=== PATIENT | male | born 1940 | race Caucasian/White ===

== ENCOUNTER 2018-02-22 14:16 | Emergency (ER) | payer OTHER ==
[2018-02-22 15:33] LABS: #Eosinphils 0.3 thou/uL (0.0-0.7); #Lymphocytes 1.4 thou/uL (1.20-3.40); #Monocytes 0.9 thou/uL (0.11-0.59); #Neutrophils 8.5 thou/uL (1.40-6.50); %Eosinophils 2.4 % (0.0-10.0); %Lymphocytes 12.3 % (21.0-51.0); %Monocytes 8.2 % (0.0-10.0); %Neutrophils 77.2 % (42.0-75.0); Mean Corpuscular Hemoglobin 29.3 pg (27.0-31.0); Mean Corpuscular Volume 91.5 fL (78.0-98.0); Platelet Count 319 thou/uL (130-400); RBC Distribution Width 14.3 % (11.5-14.5); Red Blood Cell (RBC) Count 4.78 mill/uL (4.70-6.10)
--- NOTE | 2018-02-22 15:50 | RAD ---
PORTABLE CHEST: HISTORY: Syncope. Hypotension. Dizziness. COMPARISON: None. FINDINGS: Heart size is borderline. A pacemaker is present. The lungs are clear of infiltrates. There are no signs of failure. IMPRESSION: No active intrathoracic disease. POS: [facility]
[2018-02-22 15:58] LABS: ALT (SGPT) 10 U/L (8-55); AST (SGOT) 17 U/L (5-34); Albumin 3.7 g/dL (3.4-4.8); Alkaline Phosphatase 68 U/L (40-150); Anion Gap 14 mmol/L (10-20); BUN (Urea Nitrogen) 36 mg/dL (8.4-25.7); Bilirubin, Total 0.3 mg/dL (0.2-1.2); Calc. Creatinine Clearance 0 mL/min (70-130); Calcium 9.4 mg/dL (7.8-10.44); Carbon Dioxide 29 mmol/L (23-31); Chloride 95 mmol/L (98-107); Estimated GFR-MDRD 40; Globulin 4.2 g/dL (2.4-3.5); Glucose 143 mg/dL (83-110); Potassium 4.6 mmol/L (3.5-5.1); Protein, Total 7.9 g/dL (5.8-8.1); Sodium 133 mmol/L (136-145)
[2018-02-22 16:00] LABS: CKMB 1.5 ng/mL (0-6.6); Troponin I Less than 0.010 ng/mL (< 0.028)
== END 2018-02-22 20:23 ==
LOC: ERS 14:16 → EEVIPCON 14:16 → ERS 20:23
DX: R42 Dizziness and giddiness (principal); T50.995A Adverse effect of other drugs, medicaments and biological substances, initial encounter; I95.9 Hypotension, unspecified; E66.01 Morbid (severe) obesity due to excess calories; I49.9 Cardiac arrhythmia, unspecified; I11.0 Hypertensive heart disease with heart failure; I50.9 Heart failure, unspecified; J44.9 Chronic obstructive pulmonary disease, unspecified; Z79.899 Other long term (current) drug therapy; Z79.1 Long term (current) use of non-steroidal anti-inflammatories (NSAID); Z79.82 Long term (current) use of aspirin
CPT/HCPCS: 36415; 71045; 80053; 82553; 83880; 84484; 85025; 93005

== ENCOUNTER 2018-09-05 16:20 | Inpatient (IN) | payer OTHER ==
--- NOTE | 2018-09-05 16:57 | RAD ---
RADIOGRAPH CHEST 1 VIEW: 09/05/18 at 4:39 p.m. HISTORY: 77-year-old male with episode of hypotension and ventricular tachycardia. COMPARISON: 02/22/18. FINDINGS: There are no air space densities, pulmonary edema, pneumothorax, or cardiomegaly. The lateral costop hrenic angles are sharp. There is a single lead left subclavian AICD. There is mild hyperinflation [place] ggestive of COPD. There is no interval change overall. IMPRESSION: 1. No acute cardiopulmonary findings. 2. Automatic implantable cardioverter/defibrillator. jn [] POS: [facility]
[2018-09-05 17:18] LABS: #Eosinphils 0.1 thou/uL (0.0-0.7); #Lymphocytes 1.3 thou/uL (1.20-3.40); #Monocytes 0.8 thou/uL (0.11-0.59); #Neutrophils 8.4 thou/uL (1.40-6.50); %Basophils 0.4 % (0.0-1.0); %Eosinophils 0.8 % (0.0-10.0); %Lymphocytes 12.1 % (21.0-51.0); %Monocytes 7.2 % (0.0-10.0); %Neutrophils 79.6 % (42.0-75.0); Hemoglobin 13.2 g/dL (14.0-18.0); Mean Corpuscular HGB CONC 33.8 g/dL (32.0-36.0); Mean Corpuscular Hemoglobin 31.6 pg (27.0-31.0); Mean Corpuscular Volume 93.6 fL (78.0-98.0); Mean Platelet Volume 6.2 fL (7.4-10.4); Platelet Count 351 thou/uL (130-400); RBC Distribution Width 13.4 % (11.5-14.5); Red Blood Cell (RBC) Count 4.16 mill/uL (4.70-6.10); White Blood Cell (WBC) Count 10.5 thou/uL (4.8-10.8)
[2018-09-05 17:44] LABS: ALT (SGPT) 8 U/L (8-55); AST (SGOT) 12 U/L (5-34); Albumin 3.4 g/dL (3.4-4.8); Alkaline Phosphatase 62 U/L (40-150); Anion Gap 13 mmol/L (10-20); BUN (Urea Nitrogen) 28 mg/dL (8.4-25.7); Bilirubin, Total 0.4 mg/dL (0.2-1.2); Calc. Creatinine Clearance 0 mL/min (70-130); Calcium 8.8 mg/dL (7.8-10.44); Carbon Dioxide 35 mmol/L (23-31); Chloride 89 mmol/L (98-107); Estimated GFR-MDRD 54; Globulin 3.5 g/dL (2.4-3.5); Glucose 149 mg/dL (83-110); Protein, Total 6.9 g/dL (5.8-8.1); Sodium 134 mmol/L (136-145)
[2018-09-05] MEDS ORDERED: Potassium Chloride 20 MEQ/100 ML PREMIX BAG ONE (17:56)
[2018-09-05] MEDS ORDERED: Potassium Chloride 20 MEQ TAB ONE (17:56)
[2018-09-05 22:57] VITALS: BMI 41.7
[2018-09-05 23:24] LABS: Troponin I 0.027 ng/mL (< 0.028)
[2018-09-06 01:46] LABS: Troponin I 0.025 ng/mL (< 0.028)
[2018-09-06] MEDS ORDERED: HYDROcodone/Acetaminophen 5/325 mg Tablet PO PRN (07:16)
[2018-09-06] MEDS ORDERED: hydrALAZINE 20 MG/ML VIAL SLOW IVP PRN (07:16)
[2018-09-06] MEDS ORDERED: HumaLOG 300 UNITS/3 ML VIAL SC PRN (07:16)
[2018-09-06] MEDS ORDERED: Clotrimazole 1 % Cream 30 GM TUBE TOP PRN (07:16)
[2018-09-06] MEDS ORDERED: Loratadine 10 MG TAB PO PRN (07:16)
[2018-09-06] MEDS ORDERED: Diabetic Tussin 200 MG/10 ML UDCUP PO PRN (07:16)
[2018-09-06] MEDS ORDERED: Dextrose 50% Abboject 50 ML SYRINGE SLOW IVP PRN (07:16)
[2018-09-06] MEDS ORDERED: Loperamide HCl 2 MG CAP PO PRN (07:16)
[2018-09-06] MEDS ORDERED: Calcium Carbonate 500 MG ChewTAB PO PRN (07:16)
[2018-09-06] MEDS ORDERED: Bisacodyl 10 MG SUPP PR PRN (07:16)
[2018-09-06] MEDS ORDERED: Sodium Chloride 0.65% Nasal 44 ML BOT EA NARE PRN (07:16)
[2018-09-06] MEDS ORDERED: Eucerin (Mineral Oil/Petrolatum,White) 30 gm Jar TOP PRN (07:16)
[2018-09-06] MEDS ORDERED: Zolpidem Tartrate 5 MG TAB PO PRN (07:16)
[2018-09-06] MEDS ORDERED: Senokot S 8.6-50 MG TAB PO PRN (07:16)
[2018-09-06] MEDS ORDERED: Ondansetron PF 4 MG/2 ML Vial IVP PRN (07:16)
[2018-09-06] MEDS ORDERED: Nitroglycerin 0.4 MG TAB (25 Tab Bottle) SL PRN (07:16)
[2018-09-06] MEDS ORDERED: Cepastat Lozenges 1 LOZ PO PRN (07:16)
[2018-09-06] MEDS ORDERED: Ondansetron ODT 4 MG TAB PO PRN (07:16)
[2018-09-06] MEDS ORDERED: Artificial Tears 18 DROP/0.9 ML EA EYE PRN (07:16)
[2018-09-06] MEDS ORDERED: Dextrose 5% in Water 1,000 ML IV PRN (07:16)
[2018-09-06] MEDS ORDERED: Potassium Chloride 20 MEQ TAB PO SCH ×3 (08:00→10:30)
[2018-09-06 08:19] LABS: BUN (Urea Nitrogen) 20 mg/dL (8.4-25.7); Calc. Creatinine Clearance 125 mL/min (70-130); Calcium 9.7 mg/dL (7.8-10.44); Estimated GFR-MDRD 74; Glucose 126 mg/dL (83-110)
[2018-09-06 08:28] LABS: Anion Gap 14 mmol/L (10-20); Carbon Dioxide 35 mmol/L (23-31); Chloride 90 mmol/L (98-107); Sodium 136 mmol/L (136-145)
[2018-09-06 08:36] LABS: Potassium 2.7 mmol/L (3.5-5.1)
[2018-09-06] MEDS ORDERED: Furosemide 80 MG TAB PO SCH ×2 (09:00→14:00)
[2018-09-06] MEDS ORDERED: Metolazone 2.5 MG TAB PO SCH (09:00)
[2018-09-06] MEDS: Atorvastatin Calcium 40 MG TAB PO SCH (09:22)
[2018-09-06] MEDS: metFORMIN 500 MG TAB PO SCH (09:25)
[2018-09-06] MEDS: Clopidogrel Bisulfate 75 MG TAB PO SCH (09:25)
[2018-09-06] MEDS: Enoxaparin Sodium 40 MG/0.4 ML SYRINGE SC SCH (09:26)
[2018-09-06] MEDS: Metoprolol Tartrate 50 MG TAB PO SCH ×2 (09:26→20:33)
[2018-09-06] MEDS: Aspirin 81 mg Enteric Coated Tablet PO SCH (09:26)
[2018-09-06] MEDS: Famotidine 20 MG TAB PO SCH ×2 (09:27→20:34)
[2018-09-06] MEDS: Docusate 100 MG CAP PO SCH (09:27)
[2018-09-06] MEDS ORDERED: Furosemide 40 MG TAB PO SCH (10:45)
--- NOTE | 2018-09-06 10:52 | CON ---
DATE OF CONSULTATION: 09/06/2018 REASON FOR CONSULTATION: Multiple AICD shocks. HISTORY OF PRESENT ILLNESS: Mr. Scruggs is a 77-year-old white gentleman, who is an inmate, who comes to the hospital after having several AICD shocks delivered. About 5 times in the last week. He has had an AICD for many years now and has been told that he has a weak heart since the . He has had a total about 12 heart catheterization as he says 10 from the groin and 2 from the wrist. The last time he had a catheterization was about 6 months ago in [facility]. He does not remember, if they put stents or not. On arrival, he has been ruled out with negative troponins and his BNP was only 198, but his potassium was 2.7, so this is being replaced. Currently, he denies any chest pain, tightness, pressure, or shortness of breath. PAST MEDICAL HISTORY: 1. History of systolic heart failure. 2. COPD. 3. Coronary artery disease, status post stenting in the past. 4. GERD. 5. Hyperlipidemia. 6. Hypertension. 7. History of SC in the past. 8. Tuberculosis diagnosed in 2003, treated. SURGICAL HISTORY: 1. Pilonidal cyst removal. 2. Cardiac stents x3 in the past. SOCIAL HISTORY: Former smoker. No tobacco or drugs. Currently, an inmate. FAMILY HISTORY: Noncontributory. REVIEW OF SYSTEMS: A 12-point review of systems was done and was all negative unless stated in the history of present illness. OUTPATIENT MEDICATIONS: Include, 1. Aspirin 81 a day. 2. Atorvastatin 40 mg a day. 3. Atrovent inhaler. 4. Plavix 75 mg a day. 5. Docusate. 6. Furosemide 40 mg twice a day. 7. Isosorbide mononitrate 30 mg a day. 8. Loratadine 10 mg a day. 9. Ranitidine 150 mg twice a day. 10. Lactulose. 11. Metoprolol 25 mg twice a day. 12. Potassium chloride 20 mEq daily. 13. Simethicone p.r.n. ALLERGIES: NO KNOWN DRUG ALLERGIES. PHYSICAL EXAMINATION: VITAL SIGNS: Temperature 97.9, pulse 97, respiratory rate 18, saturating 92% on room air, and blood pressure 112/66. GENERAL: Awake, alert and oriented x3. No distress. HEENT: Normocephalic, atraumatic. NECK: Supple. LUNGS: Clear. CARDIOVASCULAR: S1 and S2. No S3 or S4. No murmurs. ABDOMEN: Soft. Positive bowel sounds. EXTREMITIES: No edema. SKIN: Warm and dry. LABORATORY DATA: Laboratory work was reviewed. CBC with a white count of 10, hemoglobin 13, hematocrit 38, and platelet count 351. Chemistries are unremarkable, except for potassium is 2.7, chloride of 90, carbon dioxide of 35. BUN and creatinine were normal. GFR of 74. Troponins were completely negative x3, and BNP of 198. EKG was reviewed. Chest x-ray was reviewed. ASSESSMENT: 1. Automated implantable cardioverter defibrillator shocks. 2. History of ischemic cardiomyopathy. 3. History of dilated cardiomyopathy. 4. History of multiple stents placed. 5. Left heart catheterization 6 months ago. 6. Hypokalemia. PLAN: 1. We will replace potassium, as this is most likely the cause of his multiple shocks in the last few days. 2. We will request records from [facility], as obviously he has been worked up extensively in the past and he just recently had a heart catheterization and I would be interesting to know what this showed. He is not having an acute coronary syndrome, so my threshold to repeat a heart catheterization is low at this time. 3. We will get an interrogation of his AICD. Thank you for letting us participate in the care of your patient. We will follow. Job ID: [id number]
--- NOTE | 2018-09-06 11:06 | HP ---
PRIMARY CARE PHYSICIAN: [facility] Call admission. [facility]. REASON FOR ADMISSION: Recurrent AICD firing. HISTORY OF PRESENT ILLNESS: A 77-year-old male who has multiple medical problems including congestive heart failure with AICD, as well as hypertension, diabetes type 2, morbid obesity, who lives in penitentiary. The patient reports that his AICD was reprogrammed 3 months ago. The patient reports that last week, he experienced total 5 times AICD firing. He reports that 3 times firing happened when he was asleep, which made him to wake up from sleep and yesterday, he had 2 more episodes of AICD firing around mid day when he was reading books. At that time, he experienced some sound and that AICD fired him and it made him uncomfortable. After couple of hours when he was talking to his friends and he had another episode of firing. He did not have any prodromal symptoms of chest pain, palpitation, but after shock, he was feeling discomfort in his chest and he was feeling dizzy, and that is why he came to emergency room for evaluation. In the emergency room, his AICD was interrogated and found with ventricular tachycardia. The patient was also found with hypokalemia, which was replaced in the emergency room. Subsequently, he was admitted to Telemetry floor. This patient denies any orthopnea, PND, or leg swelling. He denies any angina. He denies any fever, chills, nausea, vomiting, diarrhea. He denies any abdominal pain, focal motor or sensory symptoms. REVIEW OF SYSTEMS: CONSTITUTIONAL: Negative for weight loss or gain, ability to conduct usual activities. SKIN: Negative for rash, itching. EYES: Negative for double vision, pain. ENT/MOUTH: Negative for nose bleeding, neck stiffness, pain, tenderness. CARDIOVASCULAR: Negative for palpitations, dyspnea on exertion, orthopnea. RESPIRATORY: Negative for shortness of breath, wheezing, cough, hemoptysis, fever or night sweats. GASTROINTESTINAL: Negative for poor appetite, abdominal pain, heartburn, nausea, vomiting, constipation, or diarrhea. GENITOURINARY: Negative for urgency, frequency, dysuria, nocturia. MUSCULOSKELETAL: Negative for pain, swelling. NEUROLOGIC/PSYCHIATRIC: Negative for anxiety, depression. ALLERGY/IMMUNOLOGIC: Negative for skin rash, bleeding tendency. Please see my HPI for pertinent positives and negatives. All other review of systems reviewed and negative except as mentioned in the HPI. PAST MEDICAL HISTORY: Cardiac arrhythmia (ventricular tachycardia), chronic systolic congestive heart failure, AICD in place, osteoarthritis, COPD, coronary artery disease required stent, gastroesophageal reflux disease, morbid obesity, hypertension, dyslipidemia, history of latent TB treated in 2003, history of myocardial infarction. PAST SURGICAL HISTORY: Cardiac catheterization several times required 3 stents, pilonidal cyst surgery several years ago, AICD placement. PAST PSYCHIATRIC HISTORY: Reviewed and negative. SOCIAL HISTORY: The patient is former smoker. He quit smoking as well as alcohol drinking in 1994. He denies any other illicit drug abuse. FAMILY HISTORY: Hypertension and diabetes runs among several family members. His father had a pancreatic cancer. Mother from kidney-related problem. One brother also from heart and diabetes-related problem. ALLERGIES: NO KNOWN DRUG ALLERGIES. CURRENT HOME MEDICATIONS: 1. Aspirin 81 mg p.o. daily. 2. Atorvastatin 40 mg p.o. daily. 3. Atrovent 2 puffs inhalation 4 times daily. 4. Plavix 75 mg daily. 5. Docusate 100 mg daily. 6. Lasix 40 mg p.o. b.i.d. 7. Imdur 90 mg daily. 8. Claritin 10 mg p.r.n. 9. Ranitidine 150 mg b.i.d. 10. Lactulose as directed. 11. Metoprolol 25 mg 2 times daily. 12. Potassium chloride 20 mEq p.o. daily. 13. Simethicone as needed. EMERGENCY ROOM COURSE: The patient is given potassium 20 mEq IV and potassium chloride 40 mEq p.o. PHYSICAL EXAMINATION: VITAL SIGNS: On arrival, blood pressure improved to 177/111, pulse 89, respiratory rate 20, temperature 98.6, saturation 99% on room air. Weight 145.2 kg. GENERAL: The patient is currently alert, awake, in no obvious acute distress. HEENT: Head; normocephalic, atraumatic. Eyes; pupils round, reactive to light. Extraocular muscle intact. ENT; oropharynx within normal limits. Moist mucous membranes. No oral lesion. No pharyngeal erythema. No exudate. NECK: Supple. No JVD. No thyromegaly. No carotid bruit. No jugular venous distention. LUNGS: Clear to auscultation without any rhonchi or rales. CARDIAC: S1, S2 regular. No murmur. No gallop. No rub. ABDOMEN: Morbid obesity limiting examination. No organomegaly. No mass. No suprapubic tenderness. BACK: Examination unremarkable. No CVA tenderness. EXTREMITIES: Upper extremities, passive movement of all joints are normal. Lower extremities, no edema. Good distal pulsation. No calf tenderness. SKIN: No skin rash. HEMATOLOGICAL SYSTEM: No lymphadenopathy. NEUROLOGIC: Nonfocal examination. SIGNIFICANT LABORATORY DATA: EKG showing left bundle-branch block pattern, occasional PVCs and nonspecific ST-T changes. Chest x-ray based on my review, cardiomegaly without any acute process. CBC; WBC 10.5, hemoglobin 13.2, platelet 351. BMP; sodium 134, potassium 3.0, chloride 89, carbon dioxide 35, anion gap 13, BUN 28, creatinine 1.28, glucose 149, calcium 8.8. LFT; AST 12, ALT 8, alkaline phosphatase 62, albumin 3.4, and magnesium 2.0. Troponin negative x3. BNP 198.6. ASSESSMENT AND PLAN: 1. Recurrent automatic implantable cardioverter-defibrillator firings from ventricular tachycardia. The patient has hypokalemia and I am suspecting that hypokalemia might have predisposed to ventricular tachycardia and subsequently, the patient had automatic implantable cardioverter-defibrillator firing. At this point, the patient is taking diuretic therapy too much and that is why, we will reduce the dose of Lasix to 40 mg p.o. b.i.d. rather than 80 mg p.o. b.i.d., and we will also discontinue Zaroxolyn, which he is taking, which is not needed at this point because the patient is completely euvolemic, and we will replace potassium chloride 40 mEq p.o. one time dose. His magnesium is normal and we will replace potassium accordingly. We will consult Cardiology. We will obtain echocardiography and we will monitor on Telemetry floor. If the patient is asymptomatic in 24 to 48 hours, then we will consider discharging back to half-way. 2. Hypokalemia, likely due to inadequate potassium replacement as well as diuretic therapy. At this point, I have reduced diuretic therapy and we will replace potassium accordingly. His magnesium is normal. We will recheck labs tomorrow. 3. Chronic systolic heart failure, most likely patient has systolic heart failure given automatic implantable cardioverter-defibrillator. We will obtain echocardiography. The patient is currently euvolemic. We will continue with metoprolol as per a half-way dose and if the patient does have real low EF, then we will ask Cardiology to consider changing his metoprolol tartrate to Coreg because Toprol-XL may not be provided at half-way and that is why, he is substituted to metoprolol tartrate, but Coreg would be a better option for him. In addition to that, we will consider whether we need to start on ANAYA inhibitor depending upon EF. 4. Coronary artery disease. We will continue aspirin, Plavix 75 mg daily, and Lipitor 40 mg p.o. at bedtime. His cardiac enzymes are negative and he is chest pain-free. We will also continue Imdur 90 mg p.o. daily. 5. Diabetes type 2. We will continue with metformin 500 mg p.o. daily. Hyperglycemia protocol order initiated. Diabetic diet will be given. 6. Dyslipidemia. Continue Lipitor 40 mg p.o. at bedtime. 7. Chronic obstructive pulmonary disease without any exacerbation. We will continue Asmanex inhaler twice daily along with Atrovent HFA and albuterol HFA p.r.n. basis. 8. Morbid obesity with body mass index of 41. Dietary education given. Weight loss education given. Healthy lifestyle measure discussed with the patient. 9. Deep venous thrombosis prophylaxis. Lovenox 40 mg subcu daily. 10. Gastrointestinal prophylaxis. Pepcid 20 mg p.o. b.i.d. CODE STATUS: The patient is full code. The patient does not have any surrogate decision maker. DISPOSITION PLAN: Based on clinical course, we are expecting the patient's stay in hospital 24 to 48 hours. Plan of care discussed with the patient. Job ID: [id number]
[2018-09-06] MEDS: Ipratropium Oral Inhaler (200 INHALATIONS) INH SCH ×3 (11:31→18:16)
[2018-09-06] MEDS: Furosemide 40 MG TAB PO SCH (16:14)
[2018-09-06] MEDS: Mometasone 100 MCG HFA INHALER INH SCH (18:18)
[2018-09-07 06:01] LABS: BUN (Urea Nitrogen) 24 mg/dL (8.4-25.7); Calc. Creatinine Clearance 103 mL/min (70-130); Calcium 9.1 mg/dL (7.8-10.44); Estimated GFR-MDRD 61; Glucose 132 mg/dL (83-110)
[2018-09-07 06:10] LABS: Anion Gap 13 mmol/L (10-20); Carbon Dioxide 36 mmol/L (23-31); Chloride 90 mmol/L (98-107); Sodium 136 mmol/L (136-145)
[2018-09-07 06:11] LABS: Potassium 2.5 mmol/L (3.5-5.1)
[2018-09-07] MEDS ORDERED: Potassium Chloride 20 MEQ TAB PO SCH (06:30)
[2018-09-07] MEDS: Potassium Chloride 10 MEQ in Premix Bag 1 BAG IVPB SCH ×3 (06:45→14:04)
[2018-09-07] MEDS: Mometasone 100 MCG HFA INHALER INH SCH ×2 (06:55→18:55)
[2018-09-07] MEDS: Ipratropium Oral Inhaler (200 INHALATIONS) INH SCH ×4 (06:56→18:52)
[2018-09-07] MEDS: Enoxaparin Sodium 40 MG/0.4 ML SYRINGE SC SCH (08:16)
[2018-09-07] MEDS: Furosemide 40 MG TAB PO SCH ×2 (08:17→14:56)
[2018-09-07] MEDS: Metoprolol Tartrate 50 MG TAB PO SCH ×2 (08:17→20:21)
[2018-09-07] MEDS: Clopidogrel Bisulfate 75 MG TAB PO SCH (08:17)
[2018-09-07] MEDS: Potassium Chloride 20 MEQ TAB PO SCH ×3 (08:17→20:21)
[2018-09-07] MEDS: metFORMIN 500 MG TAB PO SCH (08:17)
[2018-09-07] MEDS: Atorvastatin Calcium 40 MG TAB PO SCH (08:18)
[2018-09-07] MEDS: Docusate 100 MG CAP PO SCH (08:18)
[2018-09-07] MEDS: Aspirin 81 mg Enteric Coated Tablet PO SCH (08:18)
[2018-09-07] MEDS: Famotidine 20 MG TAB PO SCH ×2 (08:18→20:21)
--- NOTE | 2018-09-07 09:54 | EKG ---
Test Reason : STAT Blood Pressure : / mmHG Vent. Rate : 103 BPM Atrial Rate : 103 BPM P-R Int : 000 ms QRS Dur : 198 ms QT Int : 408 ms P-R-T Axes : 000 -09 103 degrees QTc Int : 534 ms Undetermined rhythm Left bundle branch block Abnormal ECG When compared with ECG of 05-SEP-2018 16:33, (Unconfirmed) Current undetermined rhythm precludes rhythm comparison, needs review QRS duration has increased T wave amplitude has decreased in Anterior leads QT has shortened Confirmed by DR. Clara BARAHONA ([id number]) on 09/07/2018 9:54:43 AM Referred By: Confirmed By:DR. Clara BARAHONA
--- NOTE | 2018-09-07 10:11 | PDOC.PN ---
- Subjective Encounter Start Date: 09/07/18 Encounter Start Time: 07:20 -: old records requested/rev pt had few short runs of NSVT without any ICD firing or symptoms, no fever - Objective Resuscitation Status - Order Detail: 09/06/18 07:13 Resuscitation Status Routine Resuscitation Status: FULL: Full Resuscitation MAR Reviewed: Yes Vital Signs & Weight: Vital Signs (12 hours) Temp Pulse Resp BP BP Pulse Ox 09/07/18 08:20 98.5 F 91 18 117/68 92 L 09/07/18 06:57 93 L 09/07/18 06:56 93 16 93 L 09/07/18 06:55 93 16 93 L 09/07/18 04:00 98.2 F 75 20 104/62 92 L Weight Weight 301 lb 12.8 oz I&O: 09/06/18 09/07/18 09/08/18 06:59 06:59 06:59 Intake Total 650 1280 Output Total 450 1250 Balance 200 30 Result Diagrams: 09/05/18 17:08 09/07/18 04:54 Additional Labs: Accuchecks 09/07/18 09/06/18 09/06/18 05:35 20:21 16:50 POC Glucose 154 H 206 H 204 H Radiology Reviewed by me: Yes (echo report noted) EKG Reviewed by me: Yes (NSVT) Phys Exam - Physical Examination Constitutional: NAD HEENT: PERRLA, moist MMs, sclera anicteric Neck: no JVD, supple Respiratory: no wheezing, no rales, no rhonchi Cardiovascular: RRR, no significant murmur, no rub Gastrointestinal: soft, non-tender, no distention, positive bowel sounds obesity+ Musculoskeletal: no edema, pulses present Neurological: non-focal, normal sensation, moves all 4 limbs Lymphatic: no nodes Psychiatric: normal affect, A&O x 3 Skin: no rash, normal turgor Dx/Plan (1) Ventricular tachycardia Code(s): I47.2 - VENTRICULAR TACHYCARDIA Status: Acute (2) Hypokalemia Code(s): E87.6 - HYPOKALEMIA Status: Acute (3) ICD (implantable cardioverter-defibrillator) discharge Code(s): Z45.02 - ENCNTR FOR ADJUST AND MGMT OF AUTOMATIC IMPLNTBL CARD DEFIB Status: Acute (4) CAD (coronary artery disease) Code(s): I25.10 - ATHSCL HEART DISEASE OF [place] CORONARY ARTERY W/O ANG PCTRS Status: Chronic (5) COPD (chronic obstructive pulmonary disease) Status: Chronic (6) Chronic systolic heart failure, ACC/AHA stage C Code(s): I50.22 - CHRONIC SYSTOLIC (CONGESTIVE) HEART FAILURE Status: Chronic (7) Dyslipidemia Code(s): E78.5 - HYPERLIPIDEMIA, UNSPECIFIED Status: Chronic (8) Hypertension Code(s): I10 - ESSENTIAL (PRIMARY) HYPERTENSION Status: Chronic (9) Ischemic cardiomyopathy Code(s): I25.5 - ISCHEMIC CARDIOMYOPATHY Status: Chronic (10) Morbid obesity with BMI of 40.0-44.9, adult Code(s): E66.01 - MORBID (SEVERE) OBESITY DUE TO EXCESS CALORIES; Z68.41 - BODY MASS INDEX (BMI) 40.0-44.9, ADULT Status: Chronic - Plan cont current plan of care * today will replace potassium, IV 10 meq given and will change KCL 40 meq TID * repeat labs tomorrow * medication reviewed as below * symptomatic treatment * cardiology following Review of Systems - Review of Systems ENT: negative: Ear Pain, Ear Discharge, Nose Pain, Nose Discharge, Nose Congestion, Mouth Pain, Mouth Swelling, Throat Pain, Throat Swelling, Other Respiratory: negative: Cough, Dry, Shortness of Breath, Hemoptysis, SOB with Excertion, Pleuritic Pain, Sputum, Wheezing Cardiovascular: negative: chest pain, palpitations, orthopnea, paroxysmal nocturnal dyspnea, edema, light headedness, other Gastrointestinal: negative: Nausea, Vomiting, Abdominal Pain, Diarrhea, Constipation, Melena, Hematochezia, Other Genitourinary: negative: Dysuria, Frequency, Incontinence, Hematuria, Retention , Other Musculoskeletal: negative: Neck Pain, Shoulder Pain, Arm Pain, Back Pain, Hand Pain, Leg Pain, Foot Pain, Other Skin: negative: Rash, Lesions, [place], Bruising, Other - Medications/Allergies Allergies/Adverse Reactions: Allergies Allergy/AdvReac Type Severity Reaction Status Date / Time No Known Drug Allergies Allergy Verified 09/06/18 00:22 Medications: Current Medications Acetaminophen (Tylenol) 650 mg PO Q4H PRN PRN Reason: Headache/Fever/Mild Pain (1-3) Hydrocodone Bitart/Acetaminophen ([place] 5/325) 1 tab PO Q4H PRN PRN Reason: Moderate Pain (4-6) Artificial Tears (Tears Naturale) 2 drop EA EYE PRN PRN PRN Reason: Dry Eyes Aspirin (Ecotrin) 81 mg PO DAILY [facility] Last Admin: 09/07/18 08:18 Dose: 81 mg Atorvastatin Calcium (Lipitor) 40 mg PO DAILY [facility] Last Admin: 09/07/18 08:18 Dose: 40 mg Bisacodyl (Dulcolax) 10 mg [place] DAILYPRN PRN PRN Reason: Constipation Calcium Carbonate (Tums) 1,000 mg PO Q4H PRN PRN Reason: Heartburn or Indigestion Clopidogrel Bisulfate (Plavix) 75 mg PO DAILY [facility] Last Admin: 09/07/18 08:17 Dose: 75 mg Clotrimazole (Lotrimin 1% Cream) 0 gm TOP BID PRN PRN Reason: Rash/Topical Irritation Dextrose/Water (Dextrose 50%) 25 gm SLOW IVP PRN PRN PRN Reason: Hypoglycemia Docusate Sodium (Colace) 100 mg PO DAILY [facility] Last Admin: 09/07/18 08:18 Dose: 100 mg Enoxaparin Sodium (Lovenox) 40 mg SC 0900 [facility] Last Admin: 09/07/18 08:16 Dose: 40 mg Famotidine (Pepcid) 20 mg PO BID [facility] Last Admin: 09/07/18 08:18 Dose: 20 mg Furosemide (Lasix) 40 mg PO 0900,1400 [facility] Last Admin: 09/07/18 08:17 Dose: 40 mg Glucagon (Glucagon) 1 mg IM PRN PRN PRN Reason: Hypoglycemia Guaifenesin (Robitussin Sf) 200 mg PO Q4H PRN PRN Reason: Cough Hydralazine HCl (Apresoline) 10 mg SLOW IVP Q4H PRN PRN Reason: SBP > 180 and HR < 70 Dextrose/Water (D5w) 1,000 mls @ 0 mls/hr IV .Q0M PRN PRN Reason: Hypoglycemia Insulin Human Lispro (Humalog) 0 units SC .MODERATE SLIDING SC PRN PRN Reason: Moderate [place]al Scale Insulin Human Lispro (Humalog) 0 units SC .BEDTIME SLIDING SC PRN PRN Reason: Bedtime Correctional Scale Ipratropium [place] (Atrovent Hfa) 2 puff INH QID-RT [facility] Last Admin: 09/07/18 06:56 Dose: 2 puff Isosorbide Mononitrate (Imdur Er) 90 mg PO DAILY [facility] Last Admin: 09/07/18 08:16 Dose: 90 mg Lactulose (Lactulose) 30 gm PO DAILY PRN PRN Reason: Constipation Loperamide HCl (Imodium) 2 mg PO PRN PRN PRN Reason: Diarrhea/Loose Stools Loratadine (Claritin) 10 mg PO DAILYPRN PRN PRN Reason: Sinus Symptoms Metformin HCl (Glucophage) 500 mg PO QAM-[facility] Last Admin: 09/07/18 08:17 Dose: 500 mg Metoprolol Tartrate (Lopressor) 75 mg PO BID [facility] Last Admin: 09/07/18 08:17 Dose: 75 mg Mineral Oil/White Petrolatum (Eucerin Cream) 0 gm TOP BIDPRN PRN PRN Reason: Dry Skin Mometasone Furoate (Asmanex Hfa 100 Mcg) 1 puff INH BID-RT [facility] Last Admin: 09/07/18 06:55 Dose: 1 puff Nitroglycerin (Nitrostat) 0.4 mg SL Q5MIN PRN PRN Reason: Chest Pain Ondansetron HCl (Zofran Odt) 4 mg PO Q6H PRN PRN Reason: Nausea/Vomiting Ondansetron HCl (Zofran) 4 mg IVP Q6H PRN PRN Reason: Nausea/Vomiting Potassium Chloride (K-Dur) 40 meq PO TID [facility] Last Admin: 09/07/18 08:17 Dose: 40 meq Senna/Docusate Sodium (Senokot S) 2 tab PO BID PRN PRN Reason: Constipation Sodium Chloride ([place] Nasal [place] 0.65%) 0 ml EA NARE QIDPRN PRN PRN Reason: Nasal Congestion Throat Lozenges (Cepastat Lozenges) 1 lucio PO Q2H PRN PRN Reason: Sore Throat Zolpidem Tartrate (Ambien) 5 mg PO HSPRN PRN PRN Reason: Insomnia
--- NOTE | 2018-09-07 10:37 | EKG ---
Test Reason : ER Blood Pressure : / mmHG Vent. Rate : 097 BPM Atrial Rate : 097 BPM P-R Int : 000 ms QRS Dur : 162 ms QT Int : 466 ms P-R-T Axes : 000 -12 081 degrees QTc Int : 591 ms Sinus rhythm with occasional Premature ventricular complexes and Fusion complexes Left bundle branch block Abnormal ECG Confirmed by STEPHON BORREGO ([id number]), editor map ERYN CHACKO ([id number]) on 09/07/2018 10:37:20 AM Referred By: Confirmed By:STEPHON BORREGO
[2018-09-07] MEDS: HumaLOG 300 UNITS/3 ML VIAL SC PRN (11:27)
--- NOTE | 2018-09-07 15:55 | PDOC.CTH ---
Cardiology Progress Note - Subjective No more AICD shocks delivered. No palpitations, No chest pain. - Objective Vital Signs Temp Pulse Resp BP BP Pulse Ox 09/07/18 13:46 84 16 92 L 09/07/18 12:50 98.5 F 70 20 90/56 L 92 L 09/07/18 10:31 78 16 92 L 09/07/18 08:20 98.5 F 91 18 117/68 92 L 09/07/18 06:57 93 L 09/07/18 06:56 93 16 93 L 09/07/18 06:55 93 16 93 L 09/07/18 04:00 98.2 F 75 20 104/62 92 L Weight 301 lb 12.8 oz 09/06/18 09/07/18 09/08/18 06:59 06:59 06:59 Intake Total 650 1280 480 Output Total 450 1250 650 Balance 200 30 -170 - Physical Examination General/Neuro: alert & oriented x3, NAD Neck: no JVD present Lungs: CTA, unlabored respirations Heart: RRR Abdomen: NT/ND Extremities: + edema B (trace) - Telemetry Telemetry Rhythm: NSR, NS VT - Labs Result Diagrams: 09/05/18 17:08 09/07/18 04:54 Troponin/CKMB Troponin I 0.025 ng/mL (< 0.028) 09/06/18 01:16 - Assessment/Plan 1. Sustained VT 2. S/P appropriate AICD shocks delivered. as well as multiple rounds of ATP. 3. Severe hypokalemia 4. Hx of CAD, no ACS 5. Hx of AICD placement. 6. Hx of ischemic CM. PLAN: - Continue aggressive replacement of K - Continues to have VT. - Will start amiodarone drip. - Still awaiting for records from [facility].
[2018-09-07] MEDS ORDERED: Amiodarone 450 MG in Dextrose 5% in Water 250 ML IVPB SCH (16:00)
[2018-09-07 17:05] LABS: ALT (SGPT) 9 U/L (8-55); AST (SGOT) 14 U/L (5-34); Albumin 3.2 g/dL (3.4-4.8); Alkaline Phosphatase 57 U/L (40-150); Bilirubin, Direct 0.3 mg/dL (0.1-0.3); Bilirubin, Total 0.5 mg/dL (0.2-1.2); Protein, Total 7.1 g/dL (5.8-8.1)
[2018-09-08 06:19] LABS: Anion Gap 13 mmol/L (10-20); BUN (Urea Nitrogen) 22 mg/dL (8.4-25.7); Calc. Creatinine Clearance 101 mL/min (70-130); Calcium 9.1 mg/dL (7.8-10.44); Carbon Dioxide 32 mmol/L (23-31); Chloride 94 mmol/L (98-107); Estimated GFR-MDRD 60; Glucose 132 mg/dL (83-110); Potassium 3.3 mmol/L (3.5-5.1); Sodium 136 mmol/L (136-145)
[2018-09-08] MEDS: Mometasone 100 MCG HFA INHALER INH SCH ×2 (06:42→18:52)
[2018-09-08] MEDS: Ipratropium Oral Inhaler (200 INHALATIONS) INH SCH ×4 (06:44→18:50)
[2018-09-08] MEDS: Enoxaparin Sodium 40 MG/0.4 ML SYRINGE SC SCH (08:21)
[2018-09-08] MEDS: Docusate 100 MG CAP PO SCH (08:21)
[2018-09-08] MEDS: Metoprolol Tartrate 50 MG TAB PO SCH ×2 (08:21→20:11)
[2018-09-08] MEDS: Atorvastatin Calcium 40 MG TAB PO SCH (08:22)
[2018-09-08] MEDS: Aspirin 81 mg Enteric Coated Tablet PO SCH (08:22)
[2018-09-08] MEDS: Furosemide 40 MG TAB PO SCH ×2 (08:22→14:48)
[2018-09-08] MEDS: metFORMIN 500 MG TAB PO SCH (08:22)
[2018-09-08] MEDS: Potassium Chloride 20 MEQ TAB PO SCH ×3 (08:22→20:09)
[2018-09-08] MEDS: Famotidine 20 MG TAB PO SCH ×2 (08:22→20:10)
[2018-09-08] MEDS: Clopidogrel Bisulfate 75 MG TAB PO SCH (08:22)
[2018-09-08] MEDS: Acetaminophen 325 MG TAB PO PRN ×2 (08:30→21:40)
--- NOTE | 2018-09-08 10:12 | PDOC.PN ---
- Subjective Encounter Start Date: 09/08/18 Encounter Start Time: 07:30 pt was started on amiodaron drip yesterday and his rate dropped to 55 so last night drip was DCed, no new problem Patient seen and examined. No new complaints. - Objective Resuscitation Status - Order Detail: 09/06/18 07:13 Resuscitation Status Routine Resuscitation Status: FULL: Full Resuscitation MAR Reviewed: Yes Vital Signs & Weight: Vital Signs (12 hours) Temp Pulse Resp BP Pulse Ox 09/08/18 08:20 99.1 F 81 16 112/59 L 93 L 09/08/18 06:45 92 L 09/08/18 06:44 78 16 92 L 09/08/18 06:42 78 16 92 L 09/08/18 03:55 97.9 F 82 20 102/55 L 93 L Weight Weight 300 lb 8 oz I&O: 09/07/18 09/08/18 09/09/18 06:59 06:59 06:59 Intake Total 1280 1440 Output Total 1250 2100 Balance 30 -660 Result Diagrams: 09/05/18 17:08 09/08/18 05:36 Additional Labs: Accuchecks 09/08/18 09/07/18 09/07/18 05:26 20:55 18:36 POC Glucose 183 H 274 H 162 H 09/07/18 10:41 POC Glucose 211 H EKG Reviewed by me: Yes Phys Exam - Physical Examination Constitutional: NAD HEENT: PERRLA, moist MMs, sclera anicteric Neck: no JVD, supple Respiratory: no wheezing, no rales, no rhonchi Cardiovascular: RRR, no significant murmur, no rub Gastrointestinal: soft, non-tender, no distention, positive bowel sounds obesity+ Musculoskeletal: no edema, pulses present Neurological: non-focal, normal sensation, moves all 4 limbs Lymphatic: no nodes Psychiatric: normal affect, A&O x 3 Skin: no rash, normal turgor Dx/Plan (1) Ventricular tachycardia Code(s): I47.2 - VENTRICULAR TACHYCARDIA Status: Acute (2) Hypokalemia Code(s): E87.6 - HYPOKALEMIA Status: Acute (3) ICD (implantable cardioverter-defibrillator) discharge Code(s): Z45.02 - ENCNTR FOR ADJUST AND MGMT OF AUTOMATIC IMPLNTBL CARD DEFIB Status: Acute (4) CAD (coronary artery disease) Code(s): I25.10 - ATHSCL HEART DISEASE OF [place] CORONARY ARTERY W/O ANG PCTRS Status: Chronic (5) COPD (chronic obstructive pulmonary disease) Status: Chronic (6) Chronic systolic heart failure, ACC/AHA stage C Code(s): I50.22 - CHRONIC SYSTOLIC (CONGESTIVE) HEART FAILURE Status: Chronic (7) Dyslipidemia Code(s): E78.5 - HYPERLIPIDEMIA, UNSPECIFIED Status: Chronic (8) Hypertension Code(s): I10 - ESSENTIAL (PRIMARY) HYPERTENSION Status: Chronic (9) Ischemic cardiomyopathy Code(s): I25.5 - ISCHEMIC CARDIOMYOPATHY Status: Chronic (10) Morbid obesity with BMI of 40.0-44.9, adult Code(s): E66.01 - MORBID (SEVERE) OBESITY DUE TO EXCESS CALORIES; Z68.41 - BODY MASS INDEX (BMI) 40.0-44.9, ADULT Status: Chronic - Plan cont current plan of care * continue potassium replacement * repeat labs tomorrow * will defer amiodaron to cardiology * medication reviewed as below * symptomatic treatment. Review of Systems - Review of Systems ENT: negative: Ear Pain, Ear Discharge, Nose Pain, Nose Discharge, Nose Congestion, Mouth Pain, Mouth Swelling, Throat Pain, Throat Swelling, Other Respiratory: negative: Cough, Dry, Shortness of Breath, Hemoptysis, SOB with Excertion, Pleuritic Pain, Sputum, Wheezing Cardiovascular: negative: chest pain, palpitations, orthopnea, paroxysmal nocturnal dyspnea, edema, light headedness, other Gastrointestinal: negative: Nausea, Vomiting, Abdominal Pain, Diarrhea, Constipation, Melena, Hematochezia, Other Genitourinary: negative: Dysuria, Frequency, Incontinence, Hematuria, Retention , Other Musculoskeletal: negative: Neck Pain, Shoulder Pain, Arm Pain, Back Pain, Hand Pain, Leg Pain, Foot Pain, Other - Medications/Allergies Allergies/Adverse Reactions: Allergies Allergy/AdvReac Type Severity Reaction Status Date / Time No Known Drug Allergies Allergy Verified 09/06/18 00:22 Medications: Current Medications Acetaminophen (Tylenol) 650 mg PO Q4H PRN PRN Reason: Headache/Fever/Mild Pain (1-3) Last Admin: 09/08/18 08:30 Dose: 650 mg Hydrocodone Bitart/Acetaminophen ([place] 5/325) 1 tab PO Q4H PRN PRN Reason: Moderate Pain (4-6) Artificial Tears (Tears Naturale) 2 drop EA EYE PRN PRN PRN Reason: Dry Eyes Aspirin (Ecotrin) 81 mg PO DAILY [facility] Last Admin: 09/08/18 08:22 Dose: 81 mg Atorvastatin Calcium (Lipitor) 40 mg PO DAILY [facility] Last Admin: 09/08/18 08:22 Dose: 40 mg Bisacodyl (Dulcolax) 10 mg [place] DAILYPRN PRN PRN Reason: Constipation Calcium Carbonate (Tums) 1,000 mg PO Q4H PRN PRN Reason: Heartburn or Indigestion Clopidogrel Bisulfate (Plavix) 75 mg PO DAILY [facility] Last Admin: 09/08/18 08:22 Dose: 75 mg Clotrimazole (Lotrimin 1% Cream) 0 gm TOP BID PRN PRN Reason: Rash/Topical Irritation Dextrose/Water (Dextrose 50%) 25 gm SLOW IVP PRN PRN PRN Reason: Hypoglycemia Docusate Sodium (Colace) 100 mg PO DAILY [facility] Last Admin: 09/08/18 08:21 Dose: 100 mg Enoxaparin Sodium (Lovenox) 40 mg SC 0900 [facility] Last Admin: 09/08/18 08:21 Dose: 40 mg Famotidine (Pepcid) 20 mg PO BID [facility] Last Admin: 09/08/18 08:22 Dose: 20 mg Furosemide (Lasix) 40 mg PO 0900,1400 [facility] Last Admin: 09/08/18 08:22 Dose: 40 mg Glucagon (Glucagon) 1 mg IM PRN PRN PRN Reason: Hypoglycemia Guaifenesin (Robitussin Sf) 200 mg PO Q4H PRN PRN Reason: Cough Hydralazine HCl (Apresoline) 10 mg SLOW IVP Q4H PRN PRN Reason: SBP > 180 and HR < 70 Dextrose/Water (D5w) 1,000 mls @ 0 mls/hr IV .Q0M PRN PRN Reason: Hypoglycemia Amiodarone HCl 450 mg/ (Dextrose/Water) 259 mls @ 0 mls/hr IVPB INF [facility]; Protocol Last Admin: 09/07/18 17:38 Dose: 259 mls Insulin Human Lispro (Humalog) 0 units SC .MODERATE SLIDING SC PRN PRN Reason: Moderate Correctional Scale Last Admin: 09/07/18 11:27 Dose: 4 unit Insulin Human Lispro (Humalog) 0 units SC .BEDTIME SLIDING SC PRN PRN Reason: Bedtime Correctional Scale Ipratropium [place] (Atrovent Hfa) 2 puff INH QID-RT [facility] Last Admin: 09/08/18 06:44 Dose: 2 puff Isosorbide Mononitrate (Imdur Er) 90 mg PO DAILY [facility] Last Admin: 09/08/18 08:21 Dose: 90 mg Lactulose (Lactulose) 30 gm PO DAILY PRN PRN Reason: Constipation Loperamide HCl (Imodium) 2 mg PO PRN PRN PRN Reason: Diarrhea/Loose Stools Loratadine (Claritin) 10 mg PO DAILYPRN PRN PRN Reason: Sinus Symptoms Metformin HCl (Glucophage) 500 mg PO QAM-WM [facility] Last Admin: 09/08/18 08:22 Dose: 500 mg Metoprolol Tartrate (Lopressor) 75 mg PO BID [facility] Last Admin: 09/08/18 08:21 Dose: 75 mg Mineral Oil/White Petrolatum (Eucerin Cream) 0 gm TOP BIDPRN PRN PRN Reason: Dry Skin Mometasone Furoate (Asmanex Hfa 100 Mcg) 1 puff INH BID-RT [facility] Last Admin: 09/08/18 06:42 Dose: 1 puff Nitroglycerin (Nitrostat) 0.4 mg SL Q5MIN PRN PRN Reason: Chest Pain Ondansetron HCl (Zofran Odt) 4 mg PO Q6H PRN PRN Reason: Nausea/Vomiting Ondansetron HCl (Zofran) 4 mg IVP Q6H PRN PRN Reason: Nausea/Vomiting Potassium Chloride (K-Dur) 40 meq PO TID [facility] Last Admin: 09/08/18 08:22 Dose: 40 meq Senna/Docusate Sodium (Senokot S) 2 tab PO BID PRN PRN Reason: Constipation Sodium Chloride ([place] Nasal [place] 0.65%) 0 ml EA NARE QIDPRN PRN PRN Reason: Nasal Congestion Throat Lozenges (Cepastat Lozenges) 1 lucio PO Q2H PRN PRN Reason: Sore Throat Zolpidem Tartrate (Ambien) 5 mg PO HSPRN PRN PRN Reason: Insomnia
[2018-09-08] MEDS: HumaLOG 300 UNITS/3 ML VIAL SC PRN ×2 (12:09→17:07)
--- NOTE | 2018-09-08 16:24 | PDOC.CTH ---
Cardiology Progress Note - Subjective He had his maiodarone as his HR went down to 55 last night. Pt has an AICD in place. No shocks delivered since he came in and no more VT seen since starting Amio and K replaced. - Objective Vital Signs Temp Pulse Resp BP BP Pulse Ox 09/08/18 14:04 65 16 92 L 09/08/18 12:07 97.7 F 66 16 92/50 L 92 L 09/08/18 10:12 73 16 92 L 09/08/18 08:22 93 L 09/08/18 08:20 99.1 F 81 16 112/59 L 93 L 09/08/18 06:45 92 L 09/08/18 06:44 78 16 92 L 09/08/18 06:42 78 16 92 L Weight 300 lb 8 oz 09/07/18 09/08/18 09/09/18 06:59 06:59 06:59 Intake Total 1280 1440 Output Total 1250 2100 Balance 30 -660 - Physical Examination General/Neuro: alert & oriented x3, NAD Neck: no JVD present Lungs: unlabored respirations Heart: RRR Abdomen: NT/ND Extremities: other: (no edema) - Telemetry Telemetry Rhythm: NSR - Labs Result Diagrams: 09/05/18 17:08 09/08/18 05:36 Troponin/CKMB Troponin I 0.025 ng/mL (< 0.028) 09/06/18 01:16 - Assessment/Plan 1. Sustained VT 2. S/P appropriate AICD shocks delivered. as well as multiple rounds of ATP. 3. Severe hypokalemia 4. Hx of CAD, no ACS 5. Hx of AICD placement. 6. Hx of ischemic CM. PLAN: - Continue aggressive replacement of K - Continue to hold amiodarone for now. - Better since replacing K - Still awaiting for records from [facility]. - Likely discharge tomorrow once K replaced and no more VT seen for over 24 hrs.
[2018-09-09 06:47] LABS: Anion Gap 14 mmol/L (10-20); BUN (Urea Nitrogen) 19 mg/dL (8.4-25.7); Calc. Creatinine Clearance 99 mL/min (70-130); Calcium 9.4 mg/dL (7.8-10.44); Carbon Dioxide 31 mmol/L (23-31); Chloride 97 mmol/L (98-107); Estimated GFR-MDRD 58; Glucose 125 mg/dL (83-110); Potassium 3.6 mmol/L (3.5-5.1); Sodium 138 mmol/L (136-145)
[2018-09-09] MEDS: Ipratropium Oral Inhaler (200 INHALATIONS) INH SCH ×3 (06:51→14:30)
[2018-09-09] MEDS: Mometasone 100 MCG HFA INHALER INH SCH (06:52)
[2018-09-09] MEDS: Metoprolol Tartrate 50 MG TAB PO SCH (09:13)
[2018-09-09] MEDS: Enoxaparin Sodium 40 MG/0.4 ML SYRINGE SC SCH (09:13)
[2018-09-09] MEDS: Docusate 100 MG CAP PO SCH (09:15)
[2018-09-09] MEDS: Furosemide 40 MG TAB PO SCH ×2 (09:15→17:44)
[2018-09-09] MEDS: Atorvastatin Calcium 40 MG TAB PO SCH (09:15)
[2018-09-09] MEDS: Famotidine 20 MG TAB PO SCH (09:15)
[2018-09-09] MEDS: Clopidogrel Bisulfate 75 MG TAB PO SCH (09:15)
[2018-09-09] MEDS: Potassium Chloride 20 MEQ TAB PO SCH (09:15)
[2018-09-09] MEDS: Aspirin 81 mg Enteric Coated Tablet PO SCH (09:16)
[2018-09-09] MEDS: metFORMIN 500 MG TAB PO SCH (09:16)
[2018-09-09] MEDS: Acetaminophen 325 MG TAB PO PRN (10:04)
--- NOTE | 2018-09-09 10:39 | PDOC.PN ---
- Subjective Encounter Start Date: 09/09/18 Encounter Start Time: 07:40 Patient seen and examined. No new complaints. No overnight events - Objective Resuscitation Status - Order Detail: 09/06/18 07:13 Resuscitation Status Routine Resuscitation Status: FULL: Full Resuscitation MAR Reviewed: Yes Vital Signs & Weight: Vital Signs (12 hours) Temp Pulse Resp BP Pulse Ox 09/09/18 10:28 93 16 91 L 09/09/18 07:35 97.8 F 95 22 H 121/71 94 L 09/09/18 06:51 97 16 97 09/09/18 03:40 97.8 F 76 20 122/63 93 L 09/08/18 23:35 98 F 87 20 114/55 L 92 L Weight Weight 300 lb 8 oz I&O: 09/08/18 09/09/18 09/10/18 06:59 06:59 06:59 Intake Total 1440 1350 Output Total 2100 1100 Balance -660 250 Result Diagrams: 09/05/18 17:08 09/09/18 06:09 Additional Labs: Accuchecks 09/09/18 09/08/18 09/08/18 05:39 20:28 16:41 POC Glucose 128 H 259 H 166 H 09/08/18 11:01 POC Glucose 194 H EKG Reviewed by me: Yes Phys Exam - Physical Examination Constitutional: NAD HEENT: PERRLA, moist MMs, sclera anicteric Neck: no JVD, supple Respiratory: no wheezing, no rales, no rhonchi Cardiovascular: RRR, no significant murmur, no rub Gastrointestinal: soft, non-tender, no distention, positive bowel sounds Musculoskeletal: no edema, pulses present Neurological: non-focal, normal sensation Lymphatic: no nodes Psychiatric: normal affect, A&O x 3 Skin: no rash, normal turgor Dx/Plan (1) Ventricular tachycardia Code(s): I47.2 - VENTRICULAR TACHYCARDIA Status: Resolved (2) Hypokalemia Code(s): E87.6 - HYPOKALEMIA Status: Resolved (3) ICD (implantable cardioverter-defibrillator) discharge Code(s): Z45.02 - ENCNTR FOR ADJUST AND MGMT OF AUTOMATIC IMPLNTBL CARD DEFIB Status: Acute (4) CAD (coronary artery disease) Code(s): I25.10 - ATHSCL HEART DISEASE OF [place] CORONARY ARTERY W/O ANG PCTRS Status: Chronic (5) COPD (chronic obstructive pulmonary disease) Status: Chronic (6) Chronic systolic heart failure, ACC/AHA stage C Code(s): I50.22 - CHRONIC SYSTOLIC (CONGESTIVE) HEART FAILURE Status: Chronic (7) Dyslipidemia Code(s): E78.5 - HYPERLIPIDEMIA, UNSPECIFIED Status: Chronic (8) Hypertension Code(s): I10 - ESSENTIAL (PRIMARY) HYPERTENSION Status: Chronic (9) Ischemic cardiomyopathy Code(s): I25.5 - ISCHEMIC CARDIOMYOPATHY Status: Chronic (10) Morbid obesity with BMI of 40.0-44.9, adult Code(s): E66.01 - MORBID (SEVERE) OBESITY DUE TO EXCESS CALORIES; Z68.41 - BODY MASS INDEX (BMI) 40.0-44.9, ADULT Status: Chronic - Plan cont current plan of care * medication reviewed as below * symptomatic treatment * we have reduced dose of lasix and increased potassium * stable for discharge * discussed with cardiology * see discharge milka. Review of Systems - Review of Systems ENT: negative: Ear Pain, Ear Discharge, Nose Pain, Nose Discharge, Nose Congestion, Mouth Pain, Mouth Swelling, Throat Pain, Throat Swelling, Other Respiratory: negative: Cough, Dry, Shortness of Breath, Hemoptysis, SOB with Excertion, Pleuritic Pain, Sputum, Wheezing Cardiovascular: negative: chest pain, palpitations, orthopnea, paroxysmal nocturnal dyspnea, edema, light headedness, other Gastrointestinal: negative: Nausea, Vomiting, Abdominal Pain, Diarrhea, Constipation, Melena, Hematochezia, Other Genitourinary: negative: Dysuria, Frequency, Incontinence, Hematuria, Retention , Other Musculoskeletal: negative: Neck Pain, Shoulder Pain, Arm Pain, Back Pain, Hand Pain, Leg Pain, Foot Pain, Other - Medications/Allergies Allergies/Adverse Reactions: Allergies Allergy/AdvReac Type Severity Reaction Status Date / Time No Known Drug Allergies Allergy Verified 09/06/18 00:22 Medications: Current Medications Acetaminophen (Tylenol) 650 mg PO Q4H PRN PRN Reason: Headache/Fever/Mild Pain (1-3) Last Admin: 09/09/18 10:04 Dose: 650 mg Hydrocodone Bitart/Acetaminophen ([place] 5/325) 1 tab PO Q4H PRN PRN Reason: Moderate Pain (4-6) Artificial Tears (Tears Naturale) 2 drop EA EYE PRN PRN PRN Reason: Dry Eyes Aspirin (Ecotrin) 81 mg PO DAILY [facility] Last Admin: 09/09/18 09:16 Dose: 81 mg Atorvastatin Calcium (Lipitor) 40 mg PO DAILY [facility] Last Admin: 09/09/18 09:15 Dose: 40 mg Bisacodyl (Dulcolax) 10 mg [place] DAILYPRN PRN PRN Reason: Constipation Calcium Carbonate (Tums) 1,000 mg PO Q4H PRN PRN Reason: Heartburn or Indigestion Clopidogrel Bisulfate (Plavix) 75 mg PO DAILY [facility] Last Admin: 09/09/18 09:15 Dose: 75 mg Clotrimazole (Lotrimin 1% Cream) 0 gm TOP BID PRN PRN Reason: Rash/Topical Irritation Dextrose/Water (Dextrose 50%) 25 gm SLOW IVP PRN PRN PRN Reason: Hypoglycemia Docusate Sodium (Colace) 100 mg PO DAILY [facility] Last Admin: 09/09/18 09:15 Dose: 100 mg Enoxaparin Sodium (Lovenox) 40 mg SC 0900 [facility] Last Admin: 09/09/18 09:13 Dose: 40 mg Famotidine (Pepcid) 20 mg PO BID [facility] Last Admin: 09/09/18 09:15 Dose: 20 mg Furosemide (Lasix) 40 mg PO 0900,1400 [facility] Last Admin: 09/09/18 09:15 Dose: 40 mg Glucagon (Glucagon) 1 mg IM PRN PRN PRN Reason: Hypoglycemia Guaifenesin (Robitussin Sf) 200 mg PO Q4H PRN PRN Reason: Cough Hydralazine HCl (Apresoline) 10 mg SLOW IVP Q4H PRN PRN Reason: SBP > 180 and HR < 70 Dextrose/Water (D5w) 1,000 mls @ 0 mls/hr IV .Q0M PRN PRN Reason: Hypoglycemia Insulin Human Lispro (Humalog) 0 units SC .MODERATE SLIDING SC PRN PRN Reason: Moderate Correctional Scale Last Admin: 09/08/18 17:07 Dose: 2 unit Insulin Human Lispro (Humalog) 0 units SC .BEDTIME SLIDING SC PRN PRN Reason: Bedtime Correctional Scale Last Admin: 09/08/18 21:40 Dose: 3 unit Ipratropium [place] (Atrovent Hfa) 2 puff INH QID-RT [facility] Last Admin: 09/09/18 10:28 Dose: 2 puff Isosorbide Mononitrate (Imdur Er) 90 mg PO DAILY [facility] Last Admin: 09/09/18 09:15 Dose: 90 mg Lactulose (Lactulose) 30 gm PO DAILY PRN PRN Reason: Constipation Loperamide HCl (Imodium) 2 mg PO PRN PRN PRN Reason: Diarrhea/Loose Stools Loratadine (Claritin) 10 mg PO DAILYPRN PRN PRN Reason: Sinus Symptoms Metformin HCl (Glucophage) 500 mg PO QAM-WM [facility] Last Admin: 09/09/18 09:16 Dose: 500 mg Metoprolol Tartrate (Lopressor) 75 mg PO BID [facility] Last Admin: 09/09/18 09:13 Dose: 75 mg Mineral Oil/White Petrolatum (Eucerin Cream) 0 gm TOP BIDPRN PRN PRN Reason: Dry Skin Mometasone Furoate (Asmanex Hfa 100 Mcg) 1 puff INH BID-RT [facility] Last Admin: 09/09/18 06:52 Dose: 1 puff Nitroglycerin (Nitrostat) 0.4 mg SL Q5MIN PRN PRN Reason: Chest Pain Ondansetron HCl (Zofran Odt) 4 mg PO Q6H PRN PRN Reason: Nausea/Vomiting Ondansetron HCl (Zofran) 4 mg IVP Q6H PRN PRN Reason: Nausea/Vomiting Potassium Chloride (K-Dur) 40 meq PO TID [facility] Last Admin: 09/09/18 09:15 Dose: 40 meq Senna/Docusate Sodium (Senokot S) 2 tab PO BID PRN PRN Reason: Constipation Sodium Chloride ([place] Nasal [place] 0.65%) 0 ml EA NARE QIDPRN PRN PRN Reason: Nasal Congestion Throat Lozenges (Cepastat Lozenges) 1 lucio PO Q2H PRN PRN Reason: Sore Throat Zolpidem Tartrate (Ambien) 5 mg PO HSPRN PRN PRN Reason: Insomnia
--- NOTE | 2018-09-09 12:02 | DIS ---
DATE OF ADMISSION: 09/05/2018 DATE OF DISCHARGE: 09/09/2018 PRIMARY CARE PHYSICIAN: [facility] Call Admission. DISCHARGE DISPOSITION: [facility] PRIMARY DISCHARGE DIAGNOSES: 1. Paroxysmal ventricular tachycardia due to hypokalemia. 2. Implantable cardioverter defibrillator firing due to ventricular tachycardia. 3. Hypokalemia. SECONDARY DISCHARGE DIAGNOSES: 1. Chronic systolic and diastolic heart failure with automatic implantable cardioverter-defibrillator. 2. Ischemic cardiomyopathy. 3. Morbid obesity with BMI of 40. 4. Hypertension. 5. Dyslipidemia. 6. Chronic obstructive pulmonary disease. 7. Coronary artery disease. 8. Chronic systolic and diastolic heart failure. PRIMARY PROCEDURE/OPERATION: None. RADIOLOGICAL INVESTIGATION: Chest x-ray showed no cardiomegaly. Echocardiography showed EF 20% to 25%. SIGNIFICANT LABORATORY DATA: Hemoglobin 13.2, creatinine 1.21, and potassium 3.6. Cardiac enzyme is negative. LFT normal. BNP 198. DISCHARGE MEDICATIONS: 1. Aspirin 81 mg p.o. daily. 2. Lipitor 40 mg p.o. daily. 3. Plavix 75 mg p.o. daily. 4. Colace 100 mg daily. 5. Flovent inhalation b.i.d. 6. Atrovent HFA 2 puffs q.i.d. 7. Imdur 90 mg daily. 8. Claritin 10 mg daily. 9. Clotrimazole topical application b.i.d. 10. Metformin 500 mg daily. 11. Ranitidine 150 mg b.i.d. 12. Lasix 40 mg p.o. b.i.d. 13. Lactulose 30 g p.o. daily p.r.n. 14. Lisinopril 2.5 mg p.o. daily. 15. Toprol-XL 50 mg p.o. daily. 16. Potassium chloride 20 mEq p.o. b.i.d. CONTRAINDICATION: None. CODE STATUS: Full code. INPATIENT EL TEACHER: Dr. Sanchez was following while in hospital. TEST RESULT PENDING ON DISCHARGE: None. ALLERGIES: NO KNOWN DRUG ALLERGIES. DISCHARGE PLAN: Posthospital, the patient will follow up with primary care physician and primary car stower. HOSPITAL COURSE: A 77-year-old male, who was admitted by me. Please see my HPI for further details. The patient lives in [facility] [place] and he has underlying ischemic cardiomyopathy. He was taking high dose of Lasix as well as Zaroxolyn at [facility] and he was found with hypokalemia. At [facility], the patient was having recurrent ICD firing and we noted that when we interrogated his ICD, we found ventricular tachycardia was the culprit. We are suspecting hypokalemia contributing to his ventricular tachycardia. During this admission, we replaced the potassium aggressively and after replacing potassium well, he did not have any further NSVT and he did not have any further AICD firing. Cardiology was following while in the hospital. Echocardiography was done, which showed EF 20% to 25%, which is chronic. The patient's home medication was continued while in the hospital. As the patient has systolic heart failure, we changed metoprolol tartrate to Toprol-XL and we added lisinopril 2.5 mg p.o. daily. This patient is euvolemic and that is why we reduced dose of Lasix to 50% and we also increased replacement of potassium to b.i.d. The patient will continue rest of medication as per previous. While in hospital, Cardiology started amiodarone drip, but the patient developed bradycardia and that is why amiodarone drip was discontinued. The patient is completely asymptomatic at this point, and he is medically stable for discharge. All new medication prescription will be given. Job ID: [id number]
[2018-09-09 12:07] VITALS: TEMP 98
[2018-09-09] MEDS ORDERED: Acetaminophen 325 MG TAB PO PRN (15:58)
[2018-09-09] MEDS ORDERED: Nitroglycerin 0.4 MG TAB (25 Tab Bottle) SL PRN (15:58)
[2018-09-09] MEDS ORDERED: Artificial Tears 18 DROP/0.9 ML EA EYE PRN (15:59)
[2018-09-09] MEDS ORDERED: Senokot S 8.6-50 MG TAB PO PRN (16:00)
[2018-09-09] MEDS ORDERED: Ondansetron PF 4 MG/2 ML Vial IVP PRN (16:00)
[2018-09-09] MEDS ORDERED: Ondansetron ODT 4 MG TAB PO PRN (16:00)
[2018-09-09] MEDS ORDERED: Sodium Chloride 0.65% Nasal 44 ML BOT EA NARE PRN (16:01)
[2018-09-09] MEDS ORDERED: Zolpidem Tartrate 5 MG TAB PO PRN (16:01)
[2018-09-09 17:44] VITALS: BP 107/57
[2018-09-09] MEDS ORDERED: Mometasone 100 MCG HFA INHALER INH SCH (18:30)
[2018-09-09] MEDS ORDERED: Ipratropium Oral Inhaler (200 INHALATIONS) INH SCH (19:00)
[2018-09-09] MEDS ORDERED: Potassium Chloride 20 MEQ TAB PO SCH (21:00)
[2018-09-09] MEDS ORDERED: Metoprolol Tartrate 50 MG TAB PO SCH (21:00)
[2018-09-09] MEDS ORDERED: Famotidine 20 MG TAB PO SCH (21:00)
[2018-09-10] MEDS ORDERED: metFORMIN 500 MG TAB PO SCH (08:00)
[2018-09-10] MEDS ORDERED: Clopidogrel Bisulfate 75 MG TAB PO SCH (09:00)
[2018-09-10] MEDS ORDERED: Atorvastatin Calcium 40 MG TAB PO SCH (09:00)
[2018-09-10] MEDS ORDERED: Aspirin 81 mg Enteric Coated Tablet PO SCH (09:00)
[2018-09-10] MEDS ORDERED: Enoxaparin Sodium 40 MG/0.4 ML SYRINGE SC SCH (09:00)
[2018-09-10] MEDS ORDERED: Docusate 100 MG CAP PO SCH (09:00)
== END 2018-09-09 19:19 | DRG 309 ==
LOC: ERS 16:20 → 2NO 22:34 → UNDODISIN 09-09 13:31
PROVIDERS: ADMIT Internal Medicine; ATTEND Internal Medicine
DX: I47.1 Supraventricular tachycardia (principal); I50.42 Chronic combined systolic (congestive) and diastolic (congestive) heart failure; Z68.41 Body mass index [BMI] 40.0-44.9, adult; I11.0 Hypertensive heart disease with heart failure; E11.9 Type 2 diabetes mellitus without complications; E66.01 Morbid (severe) obesity due to excess calories; E87.6 Hypokalemia; M19.90 Unspecified osteoarthritis, unspecified site; I25.5 Ischemic cardiomyopathy; J44.9 Chronic obstructive pulmonary disease, unspecified; I25.10 Atherosclerotic heart disease of native coronary artery without angina pectoris; E78.5 Hyperlipidemia, unspecified; K21.9 Gastro-esophageal reflux disease without esophagitis; I25.2 Old myocardial infarction; Z87.891 Personal history of nicotine dependence; Z79.82 Long term (current) use of aspirin; Z79.01 Long term (current) use of anticoagulants; Z95.5 Presence of coronary angioplasty implant and graft; Z79.51 Long term (current) use of inhaled steroids; Z45.02 Encounter for adjustment and management of automatic implantable cardiac defibrillator
CPT/HCPCS: 36415; 36416; 71045; 80048; 80053; 80076; 83735; 83880; 84443; 84484; 85025; 93005; 93010; 93306; 94760; 96365; 96366; J0282; J1650; J3480; J7070